=== PATIENT | female | born 1965 | race Two or more races ===

== ENCOUNTER 2024-12-10 12:45 | Emergency (ER) | payer MEDICAID, SELFPAY ==
[2024-12-10 13:17] VITALS: BP 136/88; PULSE 60; RESP 20; TEMP 37.3; O2SAT 97
--- NOTE | 2024-12-10 13:20 | XR_ITS ---
Examination: CT brain head without contrast. 2-D sagittal coronal reconstructions Date and time of exam: December 10, 2024 1357 hours INDICATIONS: Headaches beginning 4 months ago CTDI: vol (mGy):44.3 DLP: (mGycm):825 Technique: Multiple CT axial sections of the brain have been obtained, 5 mm slice thickness. Contrast has not been administered. 2-D sagittal, coronal reconstructions have been obtained Low dose protocols were performed. One or more of the following dose reduction techniques were used; automated exposure control, adjustment of the mA and/or KV according to patient size, use of iterative reconstruction technique. Findings: No significant ventricular enlargement. Intra-axial or extra-axial hemorrhage density is not seen. No mass effect or midline shift Basal cisterns are not remarkable. Fourth ventricle is midline. Cranial vault intact. Impression: Negative for acute hemorrhage, mass effect or midline shift Advise clinical correlation and follow-up studies as clinically warranted
--- NOTE | 2024-12-10 13:20 | PD.EDRME ---
Rapid Medical Screening Exam RME Arrival date/time: 12/10/24 12:45 59-year-old female presents to the emergency department today with complaints of headaches ongoing since August Chief Complaint: Headache Vital signs: Vital Signs Temperature 99.2 F 12/10/24 13:17 Pulse Rate 60 12/10/24 13:17 Respiratory Rate 20 12/10/24 13:17 Blood Pressure 136/88 H 12/10/24 13:17 Pulse Oximetry (%) 97 12/10/24 13:17 Oxygen Delivery Method Room Air 12/10/24 13:17
[2024-12-10 13:50] LABS: Basophils % (Auto) 1 % (0-2.5); Eosinophils # (Auto) 0.2 Thou/mm3 (0.0-0.5); Eosinophils % (Auto) 3 % (0-10); Hemoglobin 12.8 g/dL (12.0-16.0); Immature Granulocytes % (Auto) 0 % (0-0); Immature Granulocytes Auto 0.01 Thou/mm3 (0.00-0.00); Lymphocytes # (Auto) 2.4 Thou/mm3 (1.0-4.8); Lymphocytes % (Auto) 40 % (10-50); Mean Corpuscular HGB Conc 32.8 g/dl (31.0-37.0); Mean Corpuscular Hemoglobin 28.4 pg (25.0-35.0); Mean Corpuscular Volume 87 fL (80-100); Monocytes # (Auto) 0.5 Thou/mm3 (0.0-0.8); Monocytes % (Auto) 9 % (0-12); Neutrophils # (Auto) 2.8 Thou/mm3 (1.8-7.7); Neutrophils % (Auto) 48 % (37-80); Nucleated Red Blood Cell % 0 /100 WBC (0); Platelet Count 170 Thou/mm3 (140-440); RDW Standard Deviation 41.9 fL (36.4-46.3); White Blood Count 5.9 Thou/mm3 (3.6-11.0)
[2024-12-10 14:16] LABS: Alanine Aminotransferase 12 U/L (10-49); Albumin, Serum 4.7 gm/dL (3.5-5.0); Albumin/Globulin Ratio 2.2 (1.2-2.2); Alkaline Phosphatase 62 U/L (46-116); Anion Gap 12 (7-16); Aspartate Amino Transferase 19 U/L (0-34); BUN/Creatinine Ratio 18 Ratio (12-20); Bilirubin,Total 0.4 mg/dL (0.3-1.2); Blood Urea Nitrogen 14 mg/dL (9-23); C-Reactive Protein < 0.5 mg/dL (0.0-0.9); Carbon Dioxide 24.9 mMol/L (20.0-31.0); Chloride 105 mMol/L (98-107); Creatinine (Component) 0.8 mg/dL (0.6-1.3); Globulin 2.1 gm/dL (2.3-3.5); Glucose 81 mg/dL (74-106); Osmolality,Calculated 282 (275-295); Potassium 4.8 mMol/L (3.4-5.1); Sodium 142 mMol/L (136-145); Total Protein 6.8 gm/dL (5.7-8.2); eGFR > 60 See Note
[2024-12-10 15:59] VITALS: BP 138/88; PULSE 59; RESP 17; TEMP 36.4; O2SAT 99
--- NOTE | 2024-12-10 16:14 | EDNOTE_ITS ---
ED Headache RME/HPI General Chief Complaint: Headache Stated Complaint: Headaches since August Arrival date/time: 12/10/24 12:45 RME / HPI RME / HPI Narrative: 12/10/24 12:45 59-year-old female presents to the emergency department today with complaints of headaches ongoing since August DR. NOE AYALA ED EVALUATION: 59 year old female with history of hypertension and hyperlipidemia presents to the ED for evaluation of a persistent headache. She reports the headache began approximately four months ago and has been occurring daily since onset. She describes the pain as an aching sensation, localized to the left side of her head, and rates the intensity as moderate. Patient states she has consulted her PCP at [facility], who prescribes ibuprofen, but no further workup or imaging has been performed. She denies any history of similar headaches prior to this episode. Denies associated photophobia, phonophobia, visual changes, nausea, vomiting, sleep disturbances, or recent stressors. Denies fever, chills, chest pain, or cough. Related Data Previous Rx's ?Medication ?Instructions ?Recorded albuterol sulfate 90 mcg/actuation 1 inh inhalation QI D PRN shortness 08/13/21 breath activated powder inhaler of breath #1 ea azithromycin 250 mg tablet See Rx Instructions PO .COM PLEX #6 08/13/21 (Zithromax Z-Venkatesh) tabs dexamethasone 6 mg tablet 6 mg PO QDAY #10 tabs Allergies Allergy/AdvReac Type Severity Reaction Status Date / Time No Known Allergies Allergy Verified 12/10/24 12:49 Review of Systems Review of Systems Systems Reviewed: All systems reviewed, normal except as documented Past Medical History Past Medical History CARDIAC: Positive Hypercholesterolemia and Hypertension RESPIRATORY: Positive Asthma, Bronchitis and Tuberculosis (+ PPD TX IN 1989 FOR 6 MONTHS) GASTROINTESTINAL: Positive Gastrointestinal Disorders and Colitis REPRODUCTIVE: Positive Previous Pregnancies (X4) MUSCULOSKELETAL: Positive Musculoskeletal Disorders HEMATOLOGIC: Positive Blood Disorders and Anemia PSYCHO/SOCIAL: Positive Depression and Anxiety OTHER HISTORY: Positive Chicken Pox Family History FAMILY HISTORY: Positive Family Cancer (MATERAL AUNT/ BREAST CANCER) and Family Surgery (father complications after prostate surgery) Surgical History SURGICAL: Positive Section (X1) Social History SMOKING STATUS: Never smoker ED Exam Narrative Physical exam: GENERAL APPEARANCE: AxOx4, no obvious distress, nontoxic appearing HEENT: NC, AT. Patient has tenderness to the left lesser occipital foramen though is inconsistent, no pain on the greater occipital foramen. MMM. EOMI, clear conjunctiva, oropharynx clear. NECK: Supple without lymphadenopathy. No stiffness or restricted ROM. HEART: Normal rate and regular rhythm, normal S1/S1, no m/r/g LUNGS: CTAB, moving air well. No crackles or wheezes are heard. ABDOMEN: Soft, nontender, nondistended with good bowel sounds heard. BACK: No midline C/T/L spine pain or deformity, No CVAT, no obvious deformity. EXTREMITIES: Without cyanosis, clubbing or edema. MUSCULOSKELETAL: FROM of all major joints, no chest tenderness NEUROLOGICAL: Grossly nonfocal. Alert and oriented, moving all 4 extremities. CN not formally tested but appear grossly intact. Skin: Warm and dry without any rash. Course Quality Measures none Orders Category Date Time Status CT head/brain wo con Stat Exams 12/10/24 13:20 Completed CBC Stat Lab 12/10/24 13:36 Completed CMP [Comprehensive Metabolic Panel] Stat Lab 12/10/24 13:36 Completed CRP [C-Reactive Protein] Stat Lab 12/10/24 13:36 Completed Vital Signs Vital signs: Vital Signs Temperature 99.2 F 12/10/24 13:17 Pulse Rate 60 12/10/24 13:17 Respiratory Rate 20 12/10/24 13:17 Blood Pressure 136/88 H 12/10/24 13:17 Pulse Oximetry (%) 97 12/10/24 13:17 Oxygen Delivery Method Room Air 12/10/24 13:17 Pulse ox is % on room air which is adequate. Procedures -ED Procedure Comment Procedure: Lesser Occipital Nerve Block with Lidocaine Indication: Chronic left occipital headache consistent with lesser occipital neuralgia Consent: Informed consent was obtained. Preparation: The patient was placed supine on gurney, the skin over the injection site was cleaned with antiseptic solution. No signs of local infection or skin breakdown were noted. Procedure: The approximate location of the lesser occipital nerve at the lesser occipital foramen was identified via anatomical landmarks. A 27-gauge needle was inserted subcutaneously at the identified site. 1cc of 1% lidocaine was slowly injected around the nerve after negative aspiration for blood or cerebrospinal fluid. No complications. Headache MDM Narrative MDM Narrative:: Fabienne Quintanilla am scribing for and in the presence of Dr. Nguyen. Patient data External records reviewed:: [facility] previous records (I reviewed ED visit on 08/13/2021 ) Clinical information provided by:: patient Social determinants that could affect healthcare access:: none Patient has the following chronic illnesses:: HTN, HLD How is presenting disease/condition affected by chronic disease/condition?: uneffected by Evaluation data The following diagnostics were reviewed and interpreted by me:: lab results and radiology exam(s) Lab and/or radiology exams considered but not ordered:: None Interpretation Summary: Ordering Physician: Yojana HAYWARD)Ang NP Date of Service: 12/10/24 Procedure(s): CT head/brain wo con Accession Number(s): [id number] cc: Yojana HAYWARD),Ang AGUILAR; Zen Brito MD; Eddie Lizarraga MD~ Examination: CT brain head without contrast. 2-D sagittal coronal reconstructions Date and time of exam: December 10, 2024 1357 hours INDICATIONS: Headaches beginning 4 months ago CTDI: vol (mGy):44.3 DLP: (mGycm):825 Technique: Multiple CT axial sections of the brain have been obtained, 5 mm slice thickness. Contrast has not been administered. 2-D sagittal, coronal reconstructions have been obtained Low dose protocols were performed. One or more of the following dose reduction techniques were used; automated exposure control, adjustment of the mA and/or KV according to patient size, use of iterative reconstruction technique. Findings: No significant ventricular enlargement. Intra-axial or extra-axial hemorrhage density is not seen. No mass effect or midline shift Basal cisterns are not remarkable. Fourth ventricle is midline. Cranial vault intact. Impression: Negative for acute hemorrhage, mass effect or midline shift Advise clinical correlation and follow-up studies as clinically warranted Dictated By:Eddie Lizarraga MD Signed By:<Electronically signed by Eddie Lizarraga MD in OV>12/10/24 1419 Medications / Prescriptions Medications or Prescriptions considered but not ordered:: None Medication administrations:: See above Consultations Consultation(s) initiated? (list below): No Diagnosis Differential diagnosis headache: migraine, tension headache, subarachnoid hemorrhage and headache Most likely diagnosis given after review of the tests above:: Occipital neuritis Admission Indicated Admission indicated?: not indicated Admission Request Was there a request for admission?: No Disposition Plan Disposition Plan: Discharge Discharge Attestation Discharge Attestation: The patient and all family members were given an opportunity to ask questions and understood the discharge instructions. Discharge instructions specifically effects, indications for sooner follow up or return to the emergency department, and the expected course of current diagnosis. Patient condition: Stable Discharge Plan Plan Patient Disposition: HOME (Self Care) Prescriptions/Referrals Prescriptions/Med Rec: No Action azithromycin [Zithromax Z-Venkatesh] 250 mg tablet See Rx Instructions PO .COMPLEX Qty: 6 0RF Rx Instructions: take 500 mg today (day 1), then 250 mg for 4 days (days 2-5) albuterol sulfate 90 mcg/actuation aerosol powdr breath activated 1 inh inhalation QID PRN (Reason: shortness of breath) Qty: 1 0RF dexamethasone 6 mg tablet 6 mg PO QDAY Qty: 10 0RF Referrals: Zen Brito MD [Primary Care Provider] - In 1 week Problem List Clinical Impression: Occipital neuritis Patient/Caregiver Discharge Instructions Education Materials: Self-Care for Headaches Additional Instructions: Se le realiz? un bloqueo del nervio occipital que parece haberle aliviado el dolor de [place]ob. [place] ser? solo temporal, ya que los medicamentos dejar?n de hacer efecto. Puede consultar con guerrero m?dico de cabecera seg?n sea necesario si necesita tratamiento adicional para guerrero neuritis occipital. Es importante que, si lemon estado tomando ibuprofeno frank m?s de jeanie semana, lo descanse un tiempo, ya que tambi?n puede causar cefaleas de rebote. Puede acudir a urgencias antes si los s?ntomas empeoran o si nota alg?n problema nuevo que le preocupe. Print Language: Iranian Stand Alone Forms: [employer] Award Info., Patient Portal Info Letter
== END 2024-12-10 16:46 | disposition home or self-care (01) ==
PROVIDERS: Nurse Practitioner Primary Care; Emergency Provider Emergency Medicine; PCP Family Medicine
DX: M54.81 Occipital neuralgia (principal); E78.5 Hyperlipidemia, unspecified; I10 Essential (primary) hypertension
CPT/HCPCS: 36415; 70450; 80053; 85025; 86140; 99284

== ENCOUNTER → 2025-03-24 | Outpatient (CLI) | payer MEDICAID, SELFPAY ==
--- NOTE | 2025-03-24 10:00 | XR_ITS ---
Examination: MRI of brain without intravenous contrast. MRI brain with intravenous contrast. Date and time of exam:March 24, 2025 1111 hours INDICATIONS: Headaches one year with buzzing sounds in the year Technique: Multiple axial and sagittal images of the brain to been obtained. Siemens high-resolution 1.52 Jennifer short bore scanner utilized. Sagittal sections, T1 weighted images, TR 500, TE 14, are performed. Axial sections proton-density and T2-weighted images have been obtained. Inversion recovery axial images, TR 9260, TE 111, TR 2500. Diffusion weighted images, axial sections, TR 4800, TE 128, B value 1000. Axial sections, ADC map, TR 4800, TE 128. Axial and coronal images were also obtained post 12 cc gadolinium administered intravenously. Findings:: Enlargement of the sella turcica is not present. The optic chiasm and infundibular stalk are not remarkable. There is no localized enlargement of the medulla or oni. Fourth ventricle and cerebellar tonsils appear normal in position. No subacute area of hemorrhage density is seen. Fourth ventricle is midline. Mass in the cerebellopontine angle region is not evident. 7th and 8th nerve complexes exhibit symmetry Globes are symmetrical Orbital musculature including medial lateral rectus muscles do not exhibit abnormality Increased white matter signal is not seen Effacement of the cortical sulcal markings is not identified. Mass effect upon the ventricular system is not identified. Diffusion-weighted images demonstrate no focus of restricted diffusion Contrast images demonstrate no abnormal cerebellar or cerebral enhancement Impression: Negative for acute hemorrhage mass effect or midline shift No acute infarct No MR findings diagnostic for demyelinating disease
== END | disposition home or self-care (01) ==
LOC: SMRI 10:00
PROVIDERS: PCP Physician Assistant Medical; Referring Provider Physician Assistant Medical; Visit Provider Physician Assistant Medical
DX: R51.9 Headache, unspecified (principal)
CPT/HCPCS: 70553; A9577